=== PATIENT | female | born 1960 | race Caucasian/White ===

== ENCOUNTER 2018-02-05 13:34 | Inpatient (IN) | END 2018-02-24 15:15 | disposition home or self-care (01) | DRG 885 | DX: F31.2 Bipolar disorder, current episode manic severe with psychotic features (principal); E11.65 Type 2 diabetes mellitus with hyperglycemia; E87.1 Hypo-osmolality and hyponatremia; N39.0 Urinary tract infection, site not specified; Z87.440 Personal history of urinary (tract) infections; Z79.899 Other long term (current) drug therapy; Z73.6 Limitation of activities due to disability; Z91.14 Patient's other noncompliance with medication regimen; B96.89 Other specified bacterial agents as the cause of diseases classified elsewhere; E78.5 Hyperlipidemia, unspecified; F03.90 Unspecified dementia, unspecified severity, without behavioral disturbance, psychotic disturbance, mood disturbance, and anxiety; F12.90 Cannabis use, unspecified, uncomplicated; B96.1 Klebsiella pneumoniae [K. pneumoniae] as the cause of diseases classified elsewhere; D72.819 Decreased white blood cell count, unspecified; E86.1 Hypovolemia ==